=== PATIENT | female | born 1960 | race Caucasian/White ===

== ENCOUNTER → 2020-06-25 08:16 | Outpatient (CLI) | payer OTHER, SELFPAY ==
--- NOTE | 2020-06-25 08:23 | CT_ITS ---
STUDY: CT RIGHT FOOT REASON FOR EXAM: Right foot crushing injury 06/14/2020. TECHNIQUE: Thin section transaxial imaging of the foot was obtained, with sagittal and coronal reconstructed images. Individualized dose optimization techniques were used for this CT. COMPARISON: None. FINDINGS: There is a comminuted intra-articular fracture of the calcaneus (sagittal reconstructions 13-20), best classified as Rodriguez type II B (coronal reconstructions 47-53). Normal visualized tibiotalar, subtalar, talonavicular, calcaneocuboid, tarsal and tarsometatarsal articulations. Normal metatarsi. Normal metatarsophalangeal joint of the great toe. Normal tibial and fibular sesamoid bones. Normal interphalangeal joint of the great toe. Normal phalanges of the great toe. Normal second through fifth metatarsophalangeal joints. Normal interphalangeal joints and phalanges of the lesser toes. There is soft tissue swelling. CT/Extremity Lower without Contra IMPRESSION: Comminuted intra-articular calcaneal fracture. Electronically Signed: Syd Gamino MD at 11:05 EST Tel , Service support ,
== END ==
PROVIDERS: Visit Provider Podiatrist Foot & Ankle Surgery
DX: S97.81XA Crushing injury of right foot, initial encounter (principal)
CPT/HCPCS: 73700